=== PATIENT | female | born 1945 | race Caucasian/White ===

== ENCOUNTER 2019-07-12 07:19 | Emergency (ER) | payer MEDICARE, OTHER ==
[2019-07-12 08:11] LABS: #Basophils 0.1 thou/uL (0.0-0.2); #Eosinphils 0.2 thou/uL (0.0-0.7); #Lymphocytes 1.5 thou/uL (1.20-3.40); #Monocytes 0.6 thou/uL (0.11-0.59); #Neutrophils 5.9 thou/uL (1.40-6.50); %Basophils 0.9 % (0.0-1.0); %Eosinophils 2.5 % (0.0-10.0); %Lymphocytes 18.4 % (21.0-51.0); %Monocytes 6.8 % (0.0-10.0); %Neutrophils 71.5 % (42.0-75.0); Hemoglobin 14.1 g/dL (12.0-16.0); Mean Corpuscular HGB CONC 31.6 g/dL (32.0-36.0); Mean Corpuscular Hemoglobin 29.4 pg (27.0-31.0); Mean Platelet Volume 6.3 fL (7.4-10.4); Platelet Count 229 thou/uL (130-400); RBC Distribution Width 12.2 % (11.5-14.5); Red Blood Cell (RBC) Count 4.81 mill/uL (4.20-5.40); White Blood Cell (WBC) Count 8.2 thou/uL (4.8-10.8)
[2019-07-12] MEDS ORDERED: Ketorolac Tromethamine 30 MG/ML VIAL ONE (08:11)
[2019-07-12] MEDS ORDERED: Ondansetron PF 4 MG/2 ML Vial ONE ×2 (08:11→08:55)
[2019-07-12 08:23] LABS: Anion Gap 13 mmol/L (10-20); BUN (Urea Nitrogen) 15 mg/dL (9.8-20.1); Calc. Creatinine Clearance 0 mL/min (70-130); Carbon Dioxide 26 mmol/L (23-31); Chloride 108 mmol/L (98-107); Estimated GFR-MDRD 73; Glucose 147 mg/dL (83-110); Potassium 4.1 mmol/L (3.5-5.1); Sodium 143 mmol/L (136-145)
[2019-07-12] MEDS ORDERED: Morphine 2 MG/ML SYRINGE ONE (08:50)
--- NOTE | 2019-07-12 09:22 | CT ---
CT ABDOMEN AND PELVIS WITHOUT CONTRAST: 07/12/2019 HISTORY/TECHNIQUE: A spiral CT of the abdomen and pelvis was done for evaluation of right flank pain. Axial slices were acquired followed by coronal and sagittal reconstructions. FINDINGS: The lung bases are clear. No infiltrate or effusion is seen. The liver and spleen are normal in size and both have multiple calcified granulomas within them. There is a small, 1.4 cm cystic lesion in th e liver, medial right lobe, near the dome. Its current appearance is rather benign. Ultrasound could confirm its cystic nature, but the odds it is significant are low. The gallbladder contains no calcif ications. The pancreas and adrenal glands are unremarkable, within the limitations of a noncontrast s tudy. The major finding on the exam is a 3 mm distal right ureteral calculus at the UVJ, causing mild right hydronephrosis. The stone appears to be ready to enter the bladder very shortly. There are some resi dual stones present in the right kidney; none are seen on the left. The abdominal aorta is normal in caliber. The bowel shows no dilation, wall thickening or other acute change. A few scattered diverticula are seen in the sigmoid colon. No free air or free fluid is seen . CT of the pelvis shows no pelvic masses, fluid collections or inflammatory changes. Some degenerative facet disease is prominent in the patient's spine, worse in the lumbosacral levels. IMPRESSION: 1. A 3 mm distal right ureteral calculus causing mild right hydronephrosis. 2. Several right renal calculi remain. 3. Moderate sized hiatal hernia. Findings discussed with Dr. Peters at 0826 hours on 07/12/2019. CODE CR POS: HOME
[2019-07-12] MEDS ORDERED: Dicyclomine 20 MG TAB ONE (09:53)
[2019-07-12 11:31] LABS: Bilirubin Negative (Negative); Blood, Urine Trace (Negative); Clarity Slightly Cloudy (Clear); Glucose, Urine (Dipstick) Negative (Negative); Leukocyte Trace (Negative); Nitrite Negative (Negative); Protein, Urine (Dipstick) Negative (Neg-Trace); Urobilinogen 0.2 mg/dL (Less than 2)
[2019-07-12 11:40] LABS: Bacteria/HPF Rare-Few HPF (None Seen); RBC/HPF 0-3 HPF (0-3); Squamous Epithelial 0-3 HPF (0-3); WBC/HPF 0-3 HPF (0-3)
== END 2019-07-12 10:08 | disposition home or self-care (01) ==
LOC: BURERS 07:19
DX: N13.2 Hydronephrosis with renal and ureteral calculous obstruction (principal); E78.5 Hyperlipidemia, unspecified; E78.00 Pure hypercholesterolemia, unspecified; E03.9 Hypothyroidism, unspecified
CPT/HCPCS: 74176; 80048; 81003; 81015; 85025; 96361; 96374; 96375; 96376; J1885; J2270; J2405

== ENCOUNTER 2020-01-03 13:45 | Outpatient (CLI) | payer MEDICARE ==
--- NOTE | 2020-01-03 20:36 | RAD ---
ABDOMEN ONE VIEW: 01/03/20 No prior plain radiograph was available for comparison. The most recent CT scan showed several right renal calculi. There are multiple calcifications overlying the right renal shadow consistent with the known calculi. The largest is located centrally and is about 3 to 4 mm in size. Some are located a little more latia pherally. No calcifications are seen over the left renal shadow. There appear to be some calcified gr anulomas in the spleen. There is one small 5 mm calcific density overlying the right sacral ala. This could easily be in aneesh l but if the patient were to have right flank pain, then the possibility of a ureteral calculus would be raised and other studies would be needed. A large rounded pelvic calcification on the left side i s most likely a large phlebolith. IMPRESSION: 1. Visible right renal calculi. 2. 5 mm calcification over the right sacral ala. This could be a phlebolith, be in bowel, or if the symptoms were appropriate a ureteral calculus. Correlate with clinical exam. POS: HOME
== END 2020-01-03 13:46 | disposition home or self-care (01) ==
LOC: BURRAD 13:45
PROVIDERS: ATTEND Urology
DX: N20.0 Calculus of kidney (principal); M53.3 Sacrococcygeal disorders, not elsewhere classified
CPT/HCPCS: 74018

== ENCOUNTER 2020-03-16 12:06 | Emergency (ER) | payer MEDICARE ==
[2020-03-16] MEDS ORDERED: Boostrix 0.5 ML VIAL ONE (12:27)
== END 2020-03-16 12:52 | disposition home or self-care (01) ==
LOC: BURERS 12:08
DX: S51.012A Laceration without foreign body of left elbow, initial encounter (principal); T63.461A Toxic effect of venom of wasps, accidental (unintentional), initial encounter; E03.9 Hypothyroidism, unspecified; E78.5 Hyperlipidemia, unspecified; E78.00 Pure hypercholesterolemia, unspecified; Z79.899 Other long term (current) drug therapy; Z23 Encounter for immunization; W01.0XXA Fall on same level from slipping, tripping and stumbling without subsequent striking against object, initial encounter
CPT/HCPCS: 90471; 90715

== ENCOUNTER 2020-10-24 14:03 | Outpatient (CLI) | payer MEDICARE, OTHER | END 2020-10-24 14:04 | disposition home or self-care (01) | LOC: BURCT 14:03 | PROVIDERS: ATTEND Urology | DX: N13.2 Hydronephrosis with renal and ureteral calculous obstruction (principal); N13.9 Obstructive and reflux uropathy, unspecified; M47.816 Spondylosis without myelopathy or radiculopathy, lumbar region; I70.0 Atherosclerosis of aorta; K57.30 Diverticulosis of large intestine without perforation or abscess without bleeding; K42.9 Umbilical hernia without obstruction or gangrene | CPT/HCPCS: 74176 ==

== ENCOUNTER 2022-01-08 17:31 | Outpatient (CLI) | payer MEDICARE, OTHER | END 2022-01-08 17:32 | disposition home or self-care (01) | LOC: BURRAD 17:31 | PROVIDERS: ATTEND Family Medicine | DX: R10.9 Unspecified abdominal pain (principal) | CPT/HCPCS: 74018 ==

== ENCOUNTER 2022-01-23 08:49 | Outpatient (CLI) | payer MEDICARE, OTHER | END 2022-01-23 08:50 | disposition home or self-care (01) | LOC: BURCT 08:49 | PROVIDERS: ATTEND Family Medicine | DX: R10.9 Unspecified abdominal pain (principal); K57.30 Diverticulosis of large intestine without perforation or abscess without bleeding; K44.9 Diaphragmatic hernia without obstruction or gangrene | CPT/HCPCS: 74176 ==